=== PATIENT | male | born 1990 | race African-American/Black ===

== ENCOUNTER 2019-01-13 22:01 | Inpatient (IN) | payer MEDICAID ==
[~2019-01-13] VITALS: Ht 165.1 cm; Wt 48.5 kg
--- NOTE | 2019-01-13 22:01 | NUR ---
TO BED 4 [facility] PARAMEDICS C/O NEW ONSET TONIC CLONIC SEIZURE WITNESSED BY S/O APPROX 30-40SEC, 2ND SEIZURE WITNESSED BY EMS ENROUTE TO ER. RECEIVED PT POST-ICTAL, SOMNOLENT, NO ACUTE DISTRESS NOTED, RESP EVEN AND UNLABORED. PLACE PT ON CARDIAC MONITORING, CONTINUOS POX, O2@2L/NC. WILL CARRY OUT ORDERS. SL 18G TO LFA IN PLACE ORTHOPEDIC DENTIST.
--- NOTE | 2019-01-13 22:11 | NUR ---
NOTED PT HAVING A SEIZURE EPISODE, ER MD MADE AWARE WITH ORDERS RECEIVED. WILL CARRY OUT ORDERS.
[2019-01-13] MEDS ORDERED: LORAZEPAM INJ 2 MG/ML VIAL ONE (22:16)
--- NOTE | 2019-01-13 22:16 | NUR ---
PT MEDICATED BY RN PER ER MD ORDER.
--- NOTE | 2019-01-13 22:24 | NUR ---
TECH AT BEDSIDE FOR EKG
[2019-01-13] MEDS ORDERED: LEVETIRACETAM (500MG) 500 MG/5 ML VIAL IV ONE ×2 (22:25→22:28)
[2019-01-13] MEDS ORDERED: IV NS 0.9% 1,000 ML BAG IV ONE (22:30)
[2019-01-13] MEDS ORDERED: LEVETIRACETAM (500MG) 1,000 MG in IV NS 0.9% 100 ML IV SCH (22:30)
[2019-01-13] MEDS ORDERED: LORAZEPAM INJ 2 MG/ML VIAL IV ONE (22:30)
--- NOTE | 2019-01-13 22:30 | NUR ---
RADIOLOGY AT BEDSIDE FOR XRAY
--- NOTE | 2019-01-13 22:48 | NUR ---
PT S/O AT BEDSIDE. MAGNETIC RESONANCE IMAGING COORDINATOR AT BEDSIDE FOR BLOOD DRAW.
[2019-01-13 23:10] LABS: BASOPHILS # (AUTO) 0.1 /CMM (0.0-0.2); BASOPHILS % (AUTO) 0.5 % (0.0-2.0); EOSINOPHILS % (AUTO) 1.9 % (0.0-6.0); HEMATOCRIT 49 % (39-51); HEMOGLOBIN 14.9 g/dL (13.5-17.5); LYMPHOCYTES # (AUTO) 5.4 /CMM (0.8-4.8); LYMPHOCYTES % (AUTO) 38.5 % (20.0-44.0); MEAN CORPUSCULAR HGB CONC 31 g/dl (31.0-36.0); MEAN CORPUSCULAR VOLUME 97 fL (80-96); MONOCYTES # (AUTO) 1.3 /CMM (0.1-1.30); MONOCYTES % (AUTO) 9.6 % (2.0-12.0); NEUTROPHILS # (AUTO) 6.9 /CMM (1.8-8.9); NEUTROPHILS % (AUTO) 49.5 % (43.0-81.0); PLATELET COUNT (AUTO) 176 /CMM (150-450)
[2019-01-13 23:19] LABS: ALBUMIN 3.9 g/dL (3.4-5.0); BILIRUBIN,DIRECT 0.1 mg/dL (0.0-0.2); BILIRUBIN,TOTAL 0.2 mg/dL (0.2-1.0); CREATININE 1.5 mg/dL (0.6-1.3); POTASSIUM 3.8 mmol/L (3.5-5.1); TOTAL PROTEIN, SERUM 7.9 g/dL (6.4-8.2)
--- NOTE | 2019-01-13 23:48 | NUR ---
I WAS ABOUT TO ADMINISTER LIDOCAINE UROJECT PT STARTED URINATING HIMSELF.
--- NOTE | 2019-01-13 23:50 | NUR ---
URINE SAMPLE COLLECTED AND SENT TO LAB.
[2019-01-14] MEDS ORDERED: LIDOCAINE 2% JEL UROJET 10 ML MM ONE
--- NOTE | 2019-01-14 01:22 | NUR ---
ER MD SPOKE TO PT S/O REGARDING PT ADMISSION. PT REMAINS LETHARGIC, NO ACUTE DISTRESS NOTED, RESP EVEN AND UNLABORED. WILL CALL FOR REPORT.
--- NOTE | 2019-01-14 01:29 | NUR ---
REPORT CALLED TO [facility] COACHVIVIANA LAKHANI. WILL TRANSPORT PT VIA ACLS PROTOCOL.
--- NOTE | 2019-01-14 02:00 | NUR ---
HEIDI VALDEZ SPEAKING TO DR. LU AT THIS TIME REGARDING PT ADMISSION.
--- NOTE | 2019-01-14 02:20 | NUR ---
MS RN ADMITTING NOTES RECEIVED PT FROM ER VIA JUAN J IN STABLE CONDITION WITH SIGNIFICANT OTHER AT BEDSIDE. PT A/O X2 AND ABLE TO MAKE NEEDS KNOWN. RESPIRATIONS EVEN AND UNLABORED WITH NO S/S OF ACUTE DISTRESS OR SOB NOTED. PT ON RA SATING @98%. PT ON TELE MONITORING @SR AND 87. NO COMPLAINTS OF PAIN AT THIS TIME. ORIENTED PT TO UNIT AND ROOM. PT WITH IV #18G PATENT AND INTACT. BED IN LOWEST LOCKED POSITION WITH SIDE RAILS UP X2. SEIZURE PRECAUTIONS OBSERVED. CALL LIGHT WITHIN REACH. WILL CONTINUE TO MONITOR.
[2019-01-14] MEDS ORDERED: MAG HYDROX/AL HYDROX/SIMETH 30 ML UDC PO PRN (02:30)
[2019-01-14] MEDS ORDERED: Z GUARD REMEDY 2 OZ OINT TP PRN (02:30)
[2019-01-14] MEDS ORDERED: HYDROCODONE/APAP 5/325MG 1 EACH TABLET PO PRN (02:30)
[2019-01-14] MEDS ORDERED: ONDANSETRON HCL/PF 4 MG/2 ML VIAL IVP PRN (02:30)
[2019-01-14] MEDS ORDERED: ZOLPIDEM TARTRATE 5 MG TABLET PO PRN (02:30)
[2019-01-14] MEDS ORDERED: ACETAMINOPHEN 325 MG TABLET PO PRN (02:30)
[2019-01-14] MEDS ORDERED: MAGNESIUM HYDROXIDE 30 ML UDC PO PRN (02:30)
[2019-01-14 02:45] VITALS: BP 107/75
[2019-01-14] MEDS: IV NS 0.9% 1,000 ML IV PRN (06:25)
[2019-01-14 07:32] LABS: BASOPHILS % (AUTO) 0.1 % (0.0-2.0); EOSINOPHILS % (AUTO) 0.7 % (0.0-6.0); HEMATOCRIT 41 % (39-51); HEMOGLOBIN 13.7 g/dL (13.5-17.5); LYMPHOCYTES # (AUTO) 1.2 /CMM (0.8-4.8); LYMPHOCYTES % (AUTO) 14.5 % (20.0-44.0); MEAN CORPUSCULAR HGB CONC 33 g/dl (31.0-36.0); MEAN CORPUSCULAR VOLUME 89 fL (80-96); MONOCYTES # (AUTO) 0.7 /CMM (0.1-1.30); NEUTROPHILS # (AUTO) 6.4 /CMM (1.8-8.9); NEUTROPHILS % (AUTO) 76.7 % (43.0-81.0); PLATELET COUNT (AUTO) 146 /CMM (150-450); RED BLOOD CELL COUNT(AUTO) 4.66 MIL/uL (4.5-6.0); WHITE BLOOD COUNT (AUTO) 8.4 K/uL (4.3-11.0)
--- NOTE | 2019-01-14 07:32 | NUR ---
MS RN NOTES PT IN BED SLEEPING BUT EASILY AWOKEN VERBALLY OR BY TOUCH WITH SIGNIFICANT OTHER AT BEDSIDE. PT A/O X2-3 AND ABLE TO MAKE NEEDS KNOWN. RESPIRATIONS EVEN AND UNLABORED WITH NO S/S OF ACUTE DISTRESS OR SOB NOTED THROUGHOUT SHIFT. PT ON RA SATING @98%. PT ON TELE MONITORING @SR AND 88. NO COMPLAINTS OF PAIN AT THIS TIME. PT WITH IV #18G PATENT AND INTACT RUNNING NS @75ML/HR. BED IN LOWEST LOCKED POSITION WITH SIDE RAILS UP X2. SEIZURE PRECAUTIONS OBSERVED. CALL LIGHT WITHIN REACH. WILL ENDORSE TO ONCOMING NURSE FOR YOSSI.
[2019-01-14 07:48] LABS: ALBUMIN 3.2 g/dL (3.4-5.0); BILIRUBIN,TOTAL 0.3 mg/dL (0.2-1.0); CALCIUM, SERUM 8.7 mg/dL (8.5-10.1); CREATININE 0.9 mg/dL (0.6-1.3); POTASSIUM 3.8 mmol/L (3.5-5.1); TOTAL PROTEIN, SERUM 6.6 g/dL (6.4-8.2)
[2019-01-14 08:00] VITALS: BP 109/72
--- NOTE | 2019-01-14 08:00 | NUR ---
RN NOTES RECEIVED PATIENT IN THE BED SLEEPING, NO ACUTE RESPIRATORY DISTRESS. AROUSE WHEN CALLED NAME OR TOUCHED. ADMINISTERED SEIZURE MEDICATION. SIDE RAILS IS PADDED FOR SAFETY. INFUSING NS AT 75 ML/HR ON LEFT FA INTACT. PATIENT REFUSED PAIN. PATIENT TURN AND REPOSTION SELF. GIRLFRIEND NEXT TO THE BED. CALL LIGHT WITHIN TO REACH. SAFETY PRECAUTION MAINTAINED ALL THE TIME.
[2019-01-14] MEDS: LEVETIRACETAM SOL (5 ML) 100 MG/ML UDC PO SCH ×2 (08:53→20:59)
--- NOTE | 2019-01-14 10:00 | NUR ---
RN NOTES PATIENT IN THE BED RESTING, NO ACUTE DISTRESS, SEE BY JED FOOTE. CALL LIGHT WITHIN TO REACH. CONTINUED MONITORING FOR SAFETY.
[2019-01-14 11:53] VITALS: BP 109/72
--- NOTE | 2019-01-14 14:00 | NUR ---
RN NOTES PATIENT STABLE REFUSED PAIN, ASSIST BATHROOM,FALL PRECAUTION MAINTAINED , CONTINUED MONITORING.
[2019-01-14 15:30] VITALS: BP 107/78
--- NOTE | 2019-01-14 18:30 | NUR ---
RN NOTES V/S STABLE, FAMILY NEXT TO THE BED, PATIENT POOR EATER, INFUSING NS AT 75 ML/HR IN LEFT FA INTACT. CALL LIGHT WITHIN TO REACH. SAFETY PRECAUTION MAINTAINED ALL THE TIME. ENDORSED ONCOMING NURSE FOLLOW PLAN OF CARE.
--- NOTE | 2019-01-14 19:30 | NUR ---
rn opening note bedside report recieved from preet herr. patient mother and sister are at the bedside. poc reviewed questions concerns addressed. patient in padded bed in no apparent distress. denies pain. alert and oriented x4. srx2 call light in reach. bed alarm active. patient adult sister is going to stay with patient at bedside for the evening. verbalized understanding to call for assistance if needed.
[2019-01-14 20:01] VITALS: BP 125/76
[2019-01-15] MEDS: IV NS 0.9% 1,000 ML IV PRN (03:13)
--- NOTE | 2019-01-15 06:50 | NUR ---
PATIENT IN BED SEEN WITH EYES CLOSED BS CHECKED AND IS 328 INSULIN ADMINISTERED ORDERED. REVIEWED PATIENT PLAN TO DISCHARGE AFTER BREAKFAST HE VERBALIZED UNDERSTANDING. BED DOWN LOCKED. CALL LIGHT IN REACH. PATIENT VERBALIZED UNDESTANDING TO CALL FOR ASSISTANCE NEEDED.
--- NOTE | 2019-01-15 06:50 | NUR ---
RN PM CLOSING NOTES PATIENT SLEPT ALL NIGHT. NS STILL INFUSING NS AT 75 ML/HR IN LEFT FA INTACT. CALL LIGHT WITHIN TO REACH. SAFETY PRECAUTION MAINTAINED ALL THE TIME. GIRLFRIEND IS STILL AT THE BEDSIDE. MRSA SWAB COLLECTED. PATIENT DENIES HAVING ANY SEIZURE ACTIVY LAST NOC.
[2019-01-15 07:09] LABS: BASOPHILS % (AUTO) 0.2 % (0.0-2.0); EOSINOPHILS % (AUTO) 2.1 % (0.0-6.0); HEMATOCRIT 42 % (39-51); HEMOGLOBIN 14.1 g/dL (13.5-17.5); LYMPHOCYTES # (AUTO) 1.6 /CMM (0.8-4.8); LYMPHOCYTES % (AUTO) 19.6 % (20.0-44.0); MEAN CORPUSCULAR HGB CONC 34 g/dl (31.0-36.0); MEAN CORPUSCULAR VOLUME 88 fL (80-96); MONOCYTES # (AUTO) 0.6 /CMM (0.1-1.30); MONOCYTES % (AUTO) 6.9 % (2.0-12.0); NEUTROPHILS # (AUTO) 5.9 /CMM (1.8-8.9); NEUTROPHILS % (AUTO) 71.2 % (43.0-81.0); PLATELET COUNT (AUTO) 145 /CMM (150-450); RED BLOOD CELL COUNT(AUTO) 4.78 MIL/uL (4.5-6.0); WHITE BLOOD COUNT (AUTO) 8.3 K/uL (4.3-11.0)
[2019-01-15 07:21] LABS: CALCIUM, SERUM 8.5 mg/dL (8.5-10.1); CREATININE 0.8 mg/dL (0.6-1.3); MAGNESIUM 1.8 mg/dL (1.8-2.4); PHOSPHORUS 2.5 mg/dL (2.5-4.9); POTASSIUM 3.3 mmol/L (3.5-5.1)
[2019-01-15 07:54] VITALS: BP 106/68
[2019-01-15 08:00] VITALS: BP 106/68
--- NOTE | 2019-01-15 08:00 | NUR ---
RN NOTES PATIENT SEEN STABLE AWAKE, REFUSED PAIN, FREE OF SEIZURE DISORDER. V/S TAKEN STABLE, PATIENT HAS NO ACUTE RESPIRATORY DISTRESS. PATIENT MED COMPLIANT. INFUSING NS AT 75 ML/HR IN LEFT FA INTACT. NEED ATTENDED AND ANTICIPATED, CALL LIGHT WITHIN TO REACH. FRIEND NEXT TO THE BED. CONTINUED MONITORING.
[2019-01-15 08:10] LABS: ABG BASE EXCESS -2.3 mmol/L; ABG OXYGEN SATURATION 95.7 % (92.0-98.5); ABG PCO2 34.6 mmHg (35.0-45.0); ABG PH 7.412 (7.350-7.450); ABG PO2 79.4 mmHg (75.0-100.0); AaDO2 28.9 mmHg; COHb 1.3 % (0.5-1.5); MetHb 0.5 % (0.0-1.5); SITE, ABG Right Radial; VENT MODE, BG ROOM AIR
[2019-01-15] MEDS: LEVETIRACETAM SOL (5 ML) 100 MG/ML UDC PO SCH (09:33)
--- NOTE | 2019-01-15 10:00 | NUR ---
RN NOTES PATIENT WILL D/C HOME TODAY PER ASSISTANT STORE DIRECTOR JED FOOTE'S ORDER.
[2019-01-15] MEDS ORDERED: POTASSIUM CHLORIDE 20 MEQ TAB.PRT.SR PO SCH (11:00)
[2019-01-15] MEDS ORDERED: LEVE100S PO (11:28)
--- NOTE | 2019-01-15 13:54 | NUR ---
RN DISCHARGING NOTES PATIENT DISCHARGE AT THIS TIME GOING HOME. PATIENT A/O X4, STABLE FREE OF SEIZURE. PATIENT REFUSED PAIN, NO ACUTE RESPIRATORY DISTRESS, V/S STABLE. MED COMPLIANT. MED [id number] AND DISCHARGE ORDER EXPLAINED TO PATIENT AND MOTHER NAME YOSSI. . PATIENT VERBALIZED UNDERSTANDING. BELONGING WITH THE PATIENT. PATIENT WILL FOLLOW PRIMARY MANAGEMENT DEVELOPER, AND NEUROLOGIST. ALSO FOLLOW MECHANICAL MAINTENANCE SUPERVISOR JED PADRON NOTED Since addition of neurosurgery and neurology has been consulted on this case. No neurosurgical intervention was needed for lesion seen on CT. I discussed with Dr. 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 He also recommended to continue Keppra and avoid further alcohol, marijuana, and cocaine use. On exam today, patient is more alert and states that she feels better and her friend at bedside states that he appears much better today as well but still a little forgetful and does not remember what has happened since initial seizure activity. However, he wants to be discharged and he has been cleared by neurology for discharge. He'll be discharged today to follow as an outpatient with primary care provider and neurology for MRI with contrast and continue Keppra. Plan of care discussed with patient at bedside and his questions were answered and he agreed to plan of care. PRESCRIPTION HANDED TO THE PATIENT. PATIENT ESCORTED TO THE LOBBY FOR SAFETY. PATIENT ANIMAL WARDEN BY MOTHER NAME YOSSI PHONE # [phone].
== END 2019-01-15 13:55 | disposition home or self-care (01) | DRG 53 ==
LOC: ER 22:04 → TELE 01-14 01:34 → MED 01-14 08:49
PROVIDERS: ADMIT Nurse Practitioner Acute Care; ATTEND Nurse Practitioner Acute Care
DX: G40.501 Epileptic seizures related to external causes, not intractable, with status epilepticus (principal); E87.2 Acidosis; G93.89 Other specified disorders of brain; E44.1 Mild protein-calorie malnutrition; F19.10 Other psychoactive substance abuse, uncomplicated; J45.909 Unspecified asthma, uncomplicated; D72.829 Elevated white blood cell count, unspecified; E86.0 Dehydration; Z72.0 Tobacco use; F10.20 Alcohol dependence, uncomplicated; Y90.1 Blood alcohol level of 20-39 mg/100 ml
CPT/HCPCS: 36415; 36600; 70450-TC; 71045-TC; 80048-TC; 80053-TC; 80061-TC; 80076-TC; 80305; 83735-TC; 84100-TC; 85025-TC; 85730-TC; 87081-TC; G0378; G0480; J1953; J2060; J3490; J7030